=== PATIENT | male | born 1950 | race Caucasian/White ===

== ENCOUNTER 2016-07-13 14:32 | Inpatient (IN) | payer OTHER ==
[~2016-07-13] VITALS: Ht 188 cm; Wt 54.0 kg
[2016-07-13 15:26] LABS: BASOPHILS % (AUTO) 0.2 % (0.0-2.0); EOSINOPHILS % (AUTO) 0.6 % (1.0-6.0); HEMOGLOBIN 15.9 g/dL (13.5-17.5); LYMPHOCYTES # (AUTO) 0.5 K/uL (1.0-4.8); LYMPHOCYTES % (AUTO) 5.7 % (22.0-44.0); MEAN CORPUSCULAR HEMOGLOBIN 30.3 pg (26.0-34.0); MEAN CORPUSCULAR HGB CONC 32.4 G/dL (31.0-37.0); MEAN CORPUSCULAR VOLUME 93 fL (80-100); MONOCYTES # (AUTO) 0.3 K/uL (0.1-1.0); MONOCYTES % (AUTO) 3.1 % (2.0-9.0); NEUTROPHILS # (AUTO) 8.4 K/uL (1.8-7.7); NEUTROPHILS % (AUTO) 90.4 % (40.0-70.0); PLATELET COUNT (AUTO) 188 K/uL (150-450); RED BLOOD CELL COUNT(AUTO) 5.25 MIL/uL (4.50-5.90); RED CELL DISTRIBUTION WIDTH 14.9 % (11.5-14.5); WHITE BLOOD COUNT (AUTO) 9.3 K/uL (4.5-11.0)
[2016-07-13 15:35] LABS: CALCIUM, TOTAL 8.7 mg/dL (8.8-10.5); CREATININE 1.72 mg/dL (0.60-1.30); POTASSIUM 5.6 mmol/L (3.5-5.1)
[2016-07-13 15:39] LABS: ALBUMIN 2.5 g/dL (3.4-5.0)
[2016-07-13 15:43] LABS: RBC MORPHOLOGY COMMENT NORMAL RBC MORPH
[2016-07-13 16:17] LABS: BILIRUBIN,TOTAL 0.7 mg/dL (0.1-1.0); TOTAL PROTEIN, SERUM 6.5 g/dL (6.4-8.2)
[2016-07-13] MEDS ORDERED: LEVOFLOXACIN 500 MG TABLET PO ONE (18:00)
[2016-07-13] MEDS ORDERED: LEVOFLOXACIN 500 MG/D5% WATER 100 ML IV ONE (18:15)
[2016-07-13] MEDS ORDERED: ACETAMINOPHEN 325 MG TABLET PO PRN ×2 (18:45→21:30)
[2016-07-13] MEDS ORDERED: 0.9% SODIUM CHLORIDE 10 ML SYRINGE IVP PRN (18:45)
[2016-07-13] MEDS ORDERED: SODIUM POLYSTYRENE SULFONATE 15 GM/60 ML SUSPENSION BOTTLE PR ONE (19:15)
[2016-07-13] MEDS ORDERED: ALBUTEROL SULFATE 2.5 MG/0.5 ML NEB SOLUTION NEB PRN (21:30)
[2016-07-13] MEDS ORDERED: BISACODYL 10 MG RECTAL RECTAL SUPPOSITORY PR PRN (21:30)
[2016-07-13] MEDS: SODIUM CHLORIDE 0.9% 1,000 ML IV SCH (21:55)
[2016-07-13] MEDS: CefTRIAXone 1 GM/DEXTROSE 50 ML IV SCH (22:00)
[2016-07-13 22:11] VITALS: BP 159/110
[2016-07-13 22:13] VITALS: BP_SYST 139; BP_SYST 149; BP_DIAS 103; BP_DIAS 111
[2016-07-13] MEDS: OxyCODONE HCL/ACETAMINOPHEN 5-325 MG TABLET PO PRN (22:47)
[2016-07-14] VITALS (7 sets, daily range): BP systolic 125–151; BP diastolic 89–112
[2016-07-14 06:01] LABS: CALCIUM, TOTAL 7.8 mg/dL (8.8-10.5); CREATININE 1.44 mg/dL (0.60-1.30)
[2016-07-14] MEDS ORDERED: INFLUENZA VIRUS VACCINE QVS 2016-17 (3YR+)/PF 60 MCG/0.5 ML SYRINGE IM ONE (07:45)
[2016-07-14] MEDS: DOCUSATE SODIUM 100 MG CAPSULE PO SCH ×3 (09:00→21:00)
[2016-07-14] MEDS: HEPARIN SODIUM,PORCINE 5,000 UNITS/ML VIAL SQ SCH ×2 (09:17→21:34)
[2016-07-14] MEDS: PANTOPRAZOLE SODIUM 40 MG DR TABLET PO SCH (09:17)
[2016-07-14] MEDS: MULTIVITAMINS WITH MINERALS, THERAPEUTIC TABLET PO SCH (09:17)
[2016-07-14] MEDS: AmLODIPine BESYLATE 5 MG TABLET PO SCH (09:38)
[2016-07-14] MEDS: OxyCODONE HCL/ACETAMINOPHEN 5-325 MG TABLET PO PRN ×2 (10:01→22:17)
[2016-07-14] MEDS: SODIUM CHLORIDE 0.9% 1,000 ML IV SCH (10:02)
[2016-07-14] MEDS: CefTRIAXone 1 GM/DEXTROSE 50 ML IV SCH (21:35)
[2016-07-15 01:44] LABS: APPEARANCE,URINE CLOUDY (CLEAR); GLUCOSE, URINE (UA) NEGATIVE (NEGATIVE); KETONES,URINE NEGATIVE (NEGATIVE); LEUKOCYTE ESTERASE ,URINE MODERATE (NEGATIVE); OCCULT BLOOD,URINE MODERATE (NEGATIVE); PH,URINE 6.5 (5.0-8.0); PROTEIN,URINE SEE CONFIRM (NEGATIVE)
[2016-07-15 01:47] LABS: ADD UA MICROSCOPIC YES
[2016-07-15 02:10] LABS: SULFOSALICYLIC ACID,URINE 2+ (Negative)
[2016-07-15] MEDS: SODIUM CHLORIDE 0.9% 1,000 ML IV SCH ×2 (03:24→22:50)
[2016-07-15] MEDS: OxyCODONE HCL/ACETAMINOPHEN 5-325 MG TABLET PO PRN ×2 (03:24→18:42)
[2016-07-15 04:30] VITALS: BP 114/79
[2016-07-15 06:15] LABS: CALCIUM, TOTAL 7.8 mg/dL (8.8-10.5); CREATININE 1.25 mg/dL (0.60-1.30); PHOSPHORUS 3.4 mg/dL (2.5-4.9); POTASSIUM 4.3 mmol/L (3.5-5.1)
[2016-07-15 08:06] LABS: LYMPHS % FOR CD4 COUNT 4 %; LYMPHS ABS FOR CD4 COUNT 0.3 x10E3/uL (0.7-3.1); WBC FOR CD4 COUNT 7.2 x10E3/uL (3.4-10.8)
[2016-07-15 08:13] VITALS: BP 119/86
[2016-07-15] MEDS: DOCUSATE SODIUM 100 MG CAPSULE PO SCH ×2 (09:13→21:00)
[2016-07-15] MEDS: PANTOPRAZOLE SODIUM 40 MG DR TABLET PO SCH (09:13)
[2016-07-15] MEDS: MULTIVITAMINS WITH MINERALS, THERAPEUTIC TABLET PO SCH (09:13)
[2016-07-15] MEDS: HEPARIN SODIUM,PORCINE 5,000 UNITS/ML VIAL SQ SCH ×2 (09:14→19:50)
[2016-07-15] MEDS: AmLODIPine BESYLATE 5 MG TABLET PO SCH (09:14)
[2016-07-15 11:10] VITALS: BP 119/86
[2016-07-15 15:57] VITALS: BP 110/81
[2016-07-15 19:34] VITALS: BP 109/65
[2016-07-15] MEDS: CefTRIAXone 1 GM/DEXTROSE 50 ML IV SCH (22:50)
[2016-07-15 23:53] VITALS: BP 129/87
[2016-07-16] MEDS ORDERED: DEXTROSE 50%-WATER 25 GM/50 ML SYRINGE IVP ONE ×3 (04:25→05:18)
[2016-07-16] MEDS ORDERED: SODIUM CHLORIDE 3% 15 ML NEB SOLUTION NEB ONE (04:49)
[2016-07-16] MEDS ORDERED: 0.9% SODIUM CHLORIDE 5 ML NEB SOLUTION NEB ONE ×4 (04:50→14:46)
[2016-07-16] MEDS: DEXTROSE 5%-0.45% SODIUM CHL 1,000 ML IV SCH ×2 (05:00→17:30)
[2016-07-16 05:44] VITALS: BP 155/83
[2016-07-16 06:02] LABS: GLUCOSE COMMENT 1 Repeated; GLUCOSE,POINT OF CARE 40 MG/DL (70-110)
[2016-07-16 06:02] LABS: GLUCOSE,POINT OF CARE 43 MG/DL (70-110)
[2016-07-16 06:02] LABS: GLUCOSE COMMENT 1 Received Meds; GLUCOSE,POINT OF CARE 26 MG/DL (70-110)
[2016-07-16 06:11] LABS: GLUCOSE COMMENT 1 Doctor Notified; GLUCOSE,POINT OF CARE 47 MG/DL (70-110)
[2016-07-16 06:15] VITALS: BP 142/62
[2016-07-16 06:22] LABS: ANION GAP 6 mmol/L (8-16); CALCIUM, TOTAL 7.2 mg/dL (8.8-10.5); CARBON DIOXIDE 25 mmol/L (22-29); CHLORIDE 106 mmol/L (98-107); CREATININE 1.12 mg/dL (0.60-1.30); GLOMERULAR FILTR. RATE CALC > 60 mL/min (>60); PHOSPHORUS 2.8 mg/dL (2.5-4.9); SODIUM SERUM 137 mmol/L (136-145); UREA NITROGEN, BLOOD 41 mg/dL (7-18)
[2016-07-16 06:52] LABS: GLUCOSE COMMENT 1 Received Meds; GLUCOSE,POINT OF CARE 19 MG/DL (70-110)
[2016-07-16 07:30] VITALS: BP 142/62
[2016-07-16] MEDS: PANTOPRAZOLE SODIUM 40 MG DR TABLET PO SCH (08:39)
[2016-07-16] MEDS: MULTIVITAMINS WITH MINERALS, THERAPEUTIC TABLET PO SCH (08:39)
[2016-07-16] MEDS: DOCUSATE SODIUM 100 MG CAPSULE PO SCH (08:39)
[2016-07-16] MEDS: HEPARIN SODIUM,PORCINE 5,000 UNITS/ML VIAL SQ SCH (08:39)
[2016-07-16] MEDS: AmLODIPine BESYLATE 5 MG TABLET PO SCH (08:39)
[2016-07-16] MEDS: ALBUTEROL SULFATE 2.5 MG/0.5 ML NEB SOLUTION NEB SCH ×3 (08:52→15:50)
[2016-07-16 08:56] LABS: GLUCOSE,POINT OF CARE 115 MG/DL (70-110)
[2016-07-16] MEDS: OxyCODONE HCL/ACETAMINOPHEN 5-325 MG TABLET PO PRN ×2 (10:20→17:22)
[2016-07-16 11:25] VITALS: BP 109/57
[2016-07-16 11:41] LABS: GLUCOSE,POINT OF CARE 107 MG/DL (70-110)
[2016-07-16 11:41] LABS: GLUCOSE,POINT OF CARE 128 MG/DL (70-110)
[2016-07-16 16:00] VITALS: BP 138/65
== END 2016-07-16 18:20 | DRG 974 ==
LOC: EMS 14:35 → 6N 19:30
PROVIDERS: ADMIT Internal Medicine; ATTEND Internal Medicine
DX: J18.9 Pneumonia, unspecified organism (principal); B20 Human immunodeficiency virus [HIV] disease; E43 Unspecified severe protein-calorie malnutrition; N17.9 Acute kidney failure, unspecified; Z68.1 Body mass index [BMI] 19.9 or less, adult; E87.5 Hyperkalemia; I10 Essential (primary) hypertension; F17.210 Nicotine dependence, cigarettes, uncomplicated; R26.2 Difficulty in walking, not elsewhere classified; Z74.01 Bed confinement status; Z91.19 Patient's noncompliance with other medical treatment and regimen; Z28.21 Immunization not carried out because of patient refusal; Z98.890 Other specified postprocedural states
CPT/HCPCS: 76770; 82570; 82962; 83735; 84100; 84156; 84300; 84540; 86361; 87040; 87086; 93005; 94640; 96365; 96366; 97161; 99285; J0696; J1644; J1956; J7030